=== PATIENT | female | born 1965 | race Caucasian/White ===

== ENCOUNTER 2021-10-08 16:02 | Outpatient (CLI) | payer BC, SELFPAY ==
--- NOTE | 2021-10-08 16:15 | CRLHL7_ITS ---
For Patients: As a result of the Century Cures Act, medical imaging exams and procedure reports are released immediately into your electronic medical record. You may view this report before your referring provider. If you have questions, please contact your health care provider. BILATERAL MAMMOGRAM WITH COMPUTER-AIDED DETECTION AND TOMOSYNTHESIS TECHNIQUE: CC and MLO views were obtained. These mammographic images have been obtained using full-field digital technique. These mammographic images were interpreted with the benefit of computer-aided detection. Breast Tomosynthesis was used in this interpretation. COMPARISON FILM: 10/04/20, 10/03/19, 07/16/18. FINDINGS: There are scattered areas of fibroglandular density IMPRESSION: There is no radiographic evidence for malignancy. ASSESSMENT: BI-RADS Category 1: Negative RECOMMENDATION: Routine screening mammogram in 1 year. A lay language report of this examination will be provided to the patient. Fredy Little M.D. Diagnostic Radiologist [email or web address] ANISHA/kapil be/Dictated by: Fredy Little MD @ 10/09/2021 8:38:00 AM (Electronically Signed)
== END 2021-10-08 16:03 | disposition home or self-care (01) ==
PROVIDERS: PCP Family Medicine; Visit Provider Obstetrics & Gynecology
DX: Z12.31 Encounter for screening mammogram for malignant neoplasm of breast (principal)
CPT/HCPCS: 77063; 77067

== ENCOUNTER 2022-11-06 13:11 | Outpatient (CLI) | payer BC, SELFPAY ==
--- NOTE | 2022-11-06 13:20 | CRLHL7_ITS ---
For Patients: As a result of the Cures Act, medical imaging exams and procedure reports are released immediately into your electronic medical record. You may view this report before your referring provider. If you have questions, please contact your health care provider. BILATERAL SCREENING MAMMOGRAM WITH COMPUTER-AIDED DETECTION AND TOMOSYNTHESIS TECHNIQUE: CC and MLO views were obtained. These mammographic images have been obtained using full-field digital technique. These mammographic images were interpreted with the benefit of computer-aided detection. Breast Tomosynthesis was used in this interpretation. COMPARISON FILM: 10/08/21, 10/04/20, 10/03/19. FINDINGS: There are scattered areas of fibroglandular density IMPRESSION: There is no radiographic evidence for malignancy. ASSESSMENT: BI-RADS Category 1: Negative RECOMMENDATION: Routine screening mammogram in 1 year. A lay language report of this examination will be provided to the patient. Fredy Little M.D. Diagnostic Radiologist [email or web address] ANISHA/uma Transcribed: 3:44 p.joseph eaton/Dictated by: Fredy Little MD @ 11/07/2022 12:50:00 PM (Electronically Signed)
== END 2022-11-06 13:12 | disposition home or self-care (01) ==
PROVIDERS: PCP Family Medicine; Visit Provider Family Medicine
DX: Z12.31 Encounter for screening mammogram for malignant neoplasm of breast (principal)
CPT/HCPCS: 77063; 77067

== ENCOUNTER 2023-06-04 10:45 | Outpatient (RCR) | payer BC, SELFPAY | END 2023-06-11 10:39 | disposition home or self-care (01) | PROVIDERS: PCP Family Medicine; Visit Provider Family Medicine | DX: M25.572 Pain in left ankle and joints of left foot (principal); Z74.09 Other reduced mobility; R29.898 Other symptoms and signs involving the musculoskeletal system; Z51.89 Encounter for other specified aftercare | CPT/HCPCS: 97110; 97140; 97161 ==

== ENCOUNTER 2023-08-26 08:02 | Outpatient (CLI) | payer BC, SELFPAY | END 2023-08-26 08:03 | disposition home or self-care (01) | LOC: NFLDREF 11:25 | PROVIDERS: PCP Family Medicine; Referring Provider Family Medicine; Visit Provider Obstetrics & Gynecology | DX: R73.03 Prediabetes (principal); Z13.6 Encounter for screening for cardiovascular disorders; Z13.220 Encounter for screening for lipoid disorders | CPT/HCPCS: 80061 ==

== ENCOUNTER 2023-09-23 12:49 | Outpatient (CLI) | payer BC, SELFPAY ==
--- NOTE | 2023-09-23 13:00 | CRLHL7_ITS ---
For Patients: As a result of the Century Cures Act, medical imaging exams and procedure reports are released immediately into your electronic medical record. You may view this report before your referring provider. If you have questions, please contact your health care provider. DXA BONE MINERAL DENSITY STUDY Reason for exam: Osteoporosis. Current height (in): 67. Weight (lb): 143. Menopause age: 44. Ethnicity: White. 1. Have you had a previous hip or vertebral fracture? No. 2. Have you had any fractures during your adult life which did not result from significant trauma (e.g., auto accident)? No. 3. Did either of your parents have a hip fracture? No. 4. Do you smoke? No. 5. Have you ever taken Glucocorticoids? No. 6. Do you have rheumatoid arthritis? No. 7. Do you have secondary osteoporosis? No. 8. Do you drink 3 or more alcoholic drinks per day? No. 9. Are you being treated for osteoporosis? No. 10. Have you ever taken any of the following medications: Actonel, Evista, Fosamax, Miacalcin, Reclast, Boniva, Forteo, HRT (i.e., estrogen/hormone therapy), Protelos, Prolia, Vitamin D, Calcium, other ??? please specify. ANSWER: Yes, Fosamax (i.e., alendronate), calcium, and multivitamin. 11. Do you have any of the following medical conditions: Anorexia or bulimia, asthma or emphysema, end stage renal disease, hyperparathyroidism, any seizure disorders, cancer, inflammatory bowel diseases, hysterectomy, other ??? please specify. ANSWER: Yes, asthma or emphysema. 12. What was your maximum height (inches)? 67. 13. Do you perform weight bearing exercise regularly? Yes. 14. Do you regularly consume dairy products? Yes. 15. Do you drink caffeinated beverages? Yes. 16. At what age did your period start? 11. 17. Are you premenopausal? No. 18. How many full-term pregnancies have you had? 3. 19. Have you ever missed your period for more than 6 months in a row (not including or menopause)? No. TECHNIQUE: Bone mineral density study was performed using the [employer] FINDINGS: The results of the study expressed as bone mineral density (BMD) are as follows: Lumbar spine L1 to L4: BMD: 0.765 g/cm2. T-score: -2.6. Z-score: -1.2 Neck Left: BMD: 0.658 g/cm2. T-score: -1.7. Z-score: -0.4 Right: BMD: 0.638 g/cm2. T-score: -1.9. Z-score: -0.6 Total Left: BMD: 0.670 g/cm2. T-score: -2.2. Z-score: -1.3 Right: BMD: 0.705 g/cm2. T-score: -1.9. Z-score: -1.0 IMPRESSION: Osteoporosis. *Comparison exams done prior to 07/2019 were performed on different unit, [facility]. COMPARISON: Compared with scan of 05/02/2020, the bone mineral density has decreased by 3.6 percent at the spine and decreased by 5.0 percent at the hip. Compared with scan of 04/15/2018, the bone mineral density has increased by 9.8 percent at the spine and increased by 8.3 percent at the hip. Fredy Little M.D. Diagnostic Radiologist [email or web address] ANISHA/uma eaton/Dictated by: Fredy Little MD @ 09/24/2023 12:55:00 PM (Electronically Signed)
== END 2023-09-23 12:50 | disposition home or self-care (01) ==
LOC: RAD 12:50
PROVIDERS: PCP Family Medicine; Visit Provider Obstetrics & Gynecology
DX: M81.0 Age-related osteoporosis without current pathological fracture (principal); M85.80 Other specified disorders of bone density and structure, unspecified site
CPT/HCPCS: 77080

== ENCOUNTER 2024-04-11 12:47 | Outpatient (CLI) | payer BC, SELFPAY ==
--- NOTE | 2024-04-11 14:12 | P.ANES_ITS ---
Anesthesia Charges Start Date/Time Anesthesia Start Date: 04/11/24 Anesthesia Start Time: 13:52 Stop Date/Time Anesthesia Stop Date: 04/11/24 Anesthesia Stop Time: 14:16 Coding CPT Codes CPT Codes: CRAIG LWR INTST SCR COLSC - 68983 ([id number]) QK - VENEER PRESS OPERATOR 2-4 CNCRNT CRAIG PROC, QX - COMMAND CENTER ANALYST SVC W/ MD MED DIRECTION, P2 - PATIENT W/MILD SYST DISEASE
--- NOTE | 2024-04-11 14:12 | W.ANESCHARGE ---
Anesthesia Charges Start Date/Time Anesthesia Start Date: 04/11/24 Anesthesia Start Time: 13:52 Stop Date/Time Anesthesia Stop Date: 04/11/24 Anesthesia Stop Time: 14:16 Coding CPT Codes CPT Codes: CRAIG LWR INTST SCR COLSC - 15699 ([id number]) QK - JAVA LEAD 2-4 CNCRNT CRAIG PROC, QX - SPEECH PATHOLOGIST ASSISTANT SVC W/ MD MED DIRECTION, P2 - PATIENT W/MILD SYST DISEASE
--- NOTE | 2024-04-11 14:15 | P.ANES_ITS ---
Anesthesia Charges Start Date/Time Anesthesia Start Date: 04/11/24 Anesthesia Start Time: 13:52 Stop Date/Time Anesthesia Stop Date: 04/11/24 Anesthesia Stop Time: 14:16 Coding CPT Codes CPT Codes: ANES LWR INTST SCR COLSC - 87569 ([id number]) P2 - PATIENT W/MILD SYST DISEASE, QK - FACILITY MAINTENANCE WORKER 2-4 CNCRNT ANES PROC, QX - LEAD SYSTEMS DEVELOPER SVC W/ MD MED DIRECTION
--- NOTE | 2024-04-11 14:15 | W.ANESCHARGE ---
Anesthesia Charges Start Date/Time Anesthesia Start Date: 04/11/24 Anesthesia Start Time: 13:52 Stop Date/Time Anesthesia Stop Date: 04/11/24 Anesthesia Stop Time: 14:16 Coding CPT Codes CPT Codes: ANES LWR INTST SCR COLSC - 38605 ([id number]) P2 - PATIENT W/MILD SYST DISEASE, QK - BARREL RIFLER 2-4 CNCRNT ANES PROC, QX - GROCERY CADDY SVC W/ MD MED DIRECTION
== END 2024-04-11 12:48 | disposition home or self-care (01) ==
LOC: OP CLINIC 12:48
PROVIDERS: PCP Family Medicine; Visit Provider Internal Medicine
DX: Z12.11 Encounter for screening for malignant neoplasm of colon (principal)
CPT/HCPCS: 00812; 45378; J2704

== ENCOUNTER 2024-10-28 10:27 | Outpatient (CLI) | payer BC, SELFPAY ==
--- NOTE | 2024-10-28 10:45 | CRLHL7_ITS ---
For Patients: As a result of the Century Cures Act, medical imaging exams and procedure reports are released immediately into your electronic medical record. You may view this report before your referring provider. If you have questions, please contact your health care provider. INDICATION: BILATERAL SCREENING MAMMOGRAM, ASYMPTOMATIC 59 Y/O FEMALE COMPARISON: 11/06/2022, 10/08/2021, 10/04/2020 TECHNIQUE: Digital mammogram in CC and MLO projections including computer-aided detection (CAD) and tomosynthesis. BREAST COMPOSITION: There are scattered areas of fibroglandular density. FINDINGS: No suspicious findings. ASSESSMENT: BI-RADS 1 Negative RECOMMENDATION: Annual screening mammogram. A lay language report of this examination will be provided to the patient. Dictated by: Fredy Little MD @ 10/31/2024 11:41:54 (Electronically Signed)
== END 2024-10-28 10:28 | disposition home or self-care (01) ==
LOC: MAMMO 10:28
PROVIDERS: PCP Family Medicine; Visit Provider Obstetrics & Gynecology
DX: Z12.31 Encounter for screening mammogram for malignant neoplasm of breast (principal)
CPT/HCPCS: 77063; 77067